=== PATIENT | male | born 1990 | race Two or more races ===

== ENCOUNTER 2022-05-20 17:52 | Emergency (ER) | payer OTHER ==
[~2022-05-20] VITALS: Ht 193 cm; Wt 112.0 kg
[2022-05-20 18:06] VITALS: BP 156/93
== END 2022-05-20 21:57 | disposition home or self-care (01) ==
LOC: ER 17:52
DX: R05.9 Cough, unspecified (principal); N48.89 Other specified disorders of penis; Z98.890 Other specified postprocedural states
CPT/HCPCS: 71045; 99283